=== PATIENT | female | born 1940 | race Two or more races ===

== ENCOUNTER 2016-09-12 13:42 | Emergency (ER) | payer MEDICARE, OTHER ==
[~2016-09-12] VITALS: Ht 154.9 cm; Wt 63.5 kg
[~2016-09-12 13:42] MED LIST: METF500T4 PO; OXYC5CAP PO
[2016-09-12 14:04] VITALS: BP 122/65
--- NOTE | 2016-09-12 14:43 | RAD ---
Examination: 2 views of the right hip with pelvis History: History of right hip pain after fall Comparison: None available Findings: The bilateral femoral heads are within the cerebellar. Mild joint space loss identified in the bilateral hip joints likely degenerative. There is no acute fracture or dislocation identified. Impression: No acute osseous findings.
[2016-09-12] MEDS ORDERED: CYCL5TAB PO (15:00)
--- NOTE | 2016-09-12 15:01 | PHYS DOC ---
Past Medical History Past Medical History: Diabetes-Type II Past Surgical History: Cholecystectomy, Hysterectomy, Other Additional Past Surgical Histo: back Alcohol Use: None Drug Use: None Adult General Chief Complaint Chief Complaint: HIP PAIN [facility] HPI Patient is a 76 year old female presents emergency Department with her who states that she fell on her right hip approximately one month ago. He states that she has not been seen for the pain and discomfort. She has not been taken anything to help with the discomfort as well. He denies any loss of bowel or bladder. He states that she's been able to ambulate without any difficulty however she is still complaining of some pain and discomfort in her right lower back area. Patient is Upper Sorbian-speaking only the has been is interpreting information for her. Review of Systems Review of Systems Constitutional: Denies fever or chills [] Eyes: Denies change in visual acuity, redness, or eye pain [] HENT: Denies nasal congestion or sore throat [] Respiratory: Denies cough or shortness of breath [] Cardiovascular: No additional information not addressed in HPI [] GI: Denies abdominal pain, nausea, vomiting, bloody stools or diarrhea [] : Denies dysuria or hematuria [] Musculoskeletal: Complaint of right lower back pain denies joint pain Integument: Denies rash or skin lesions [] Neurologic: Denies headache, focal weakness or sensory changes [] Endocrine: Denies polyuria or polydipsia [] Allergies Allergies Allergies Coded Allergies Type Severity Reaction Last Updated Verified No Known Drug Allergies 04/14/13 No Physical Exam Physical Exam Constitutional: Well developed, well nourished, no acute distress, non-toxic appearance. [] HENT: Normocephalic, atraumatic, bilateral external ears normal, oropharynx moist, no oral exudates, nose normal. [] Eyes: PERRLA, EOMI, conjunctiva normal, no discharge. [] Neck: Normal range of motion, no tenderness, supple, no stridor. [] Cardiovascular:Heart rate regular rhythm, no murmur [] Lungs & Thorax: Bilateral breath sounds clear to auscultation [] Skin: Warm, dry, no erythema, no rash. [] Back: No thoracic, lumbar spine discomfort. No crepitus no deformities no step- offs noted. Patient was noted to have tenderness on the right lower back area. She has increased discomfort with raising the right leg. No discomfort noted with raising the left leg. Peripheral pulses 2+ cap refill brisk less than 2 seconds. Extremities: No tenderness, no cyanosis, no clubbing, ROM intact, no edema. [] Neurologic: Alert and oriented X 3, normal motor function, normal sensory function, no focal deficits noted. [] Psychologic: Affect normal, judgement normal, mood normal. [] Current Patient Data Vital Signs Vital Signs Date Time Temp Pulse Resp B/P (MAP) Pulse Ox O2 Delivery O2 Flow Rate FiO2 09/12/16 14:04 97.9 62 20 122/65 (84) 97 Room Air 97.9 EKG EKG [] Radiology/Procedures Radiology/Procedures [facility] [address] [place] [address] IMAGING REPORT Signed PATIENT: SARAH RIVAS ACCOUNT: [id number] : 1940 LOCATION: ER AGE: 76 SEX: F EXAM STATUS: REG ER ORD. PHYSICIAN: RENETTA RAMESH APRN REASON: right hip pain after a fall 1-2 months ago PROCEDURE: HIP RIGHT 2V WITH PELVIS Examination: 2 views of the right hip with pelvis History: History of right hip pain after fall Comparison: None available Findings: The bilateral femoral heads are within the cerebellar. Mild joint space loss identified in the bilateral hip joints likely degenerative. There is no acute fracture or dislocation identified. Impression: No acute osseous findings. DICTATED and SIGNED BY: COLE SMALLWOOD MD DATE: 09/12/16 1439 CC: RENETTA RAMESH APRN; PASHA POLLOCK ~ [] Course & Med Decision Making Course & Med Decision Making Pertinent Labs and Imaging studies reviewed. (See chart for details) Patient will be discharged home with recommendations for ibuprofen 600 mg every 8 hours. She'll be provided with Flexeril in which she has been instructed will cause drowsiness do not take any be alert and oriented. Recommended ice packs on 20 minutes off 20 minutes several times a day. Also recommended following up primary care physician next 7-10 days. Family member who is interpreting for patient agrees with discharge instructions, treatment regimens and follow-up recommendations. Signs and symptoms to return back to emergency department has been provided to the . The agrees with the treatment regimens and follow-up recommendations. Patient will be discharged home in stable condition. [] Dawit Disclaimer Dragon Disclaimer This electronic medical record was generated, in whole or in part, using a voice recognition dictation system. Departure Departure Impression: Primary Impression: Lower back pain Disposition: HOME, SELF-CARE Condition: STABLE Referrals: PASHA POLLOCK (PCP) Patient Instructions: Back Pain, Adult, [id number] Additional Instructions: Activity as tolerated. Ibuprofen 600 mg every 8 hours with food stop taking few develop upset stomach. Flexeril as a muscle relaxer this medication will cause drowsiness do not take any be alert and oriented. Ice packs on 20 minutes off 20 minutes several times a day. Follow-up with your primary care physician in the next 7-10 days. Return back to emergency department sign symptoms become worse. Scripts Cyclobenzaprine Hcl (CYCLOBENZAPRINE HCL) 5 Mg Tablet 1 TAB PO TID Y for MUSCLE SPASMS, #30 TAB Prov: RENETTA RAMESH APRN 09/12/16 RENETTA RAMESH APRN Sep 12, 2016 15:01
== END 2016-09-12 15:13 | disposition home or self-care (01) ==
LOC: ER 13:42
DX: M54.5 Low back pain (principal); M25.551 Pain in right hip; E11.9 Type 2 diabetes mellitus without complications; Z90.710 Acquired absence of both cervix and uterus; Z90.49 Acquired absence of other specified parts of digestive tract; Z98.890 Other specified postprocedural states
CPT/HCPCS: 73502; 99284

== ENCOUNTER → 2017-05-04 | Outpatient (CLI) | payer OTHER, MEDICARE | END | disposition home or self-care (01) | LOC: KCIC DEXA 10:54 | DX: Z13.820 Encounter for screening for osteoporosis (principal); M85.88 Other specified disorders of bone density and structure, other site; E11.9 Type 2 diabetes mellitus without complications; Z78.0 Asymptomatic menopausal state | CPT/HCPCS: 77080 ==

== ENCOUNTER 2017-10-29 19:56 | Emergency (ER) | payer OTHER ==
[~2017-10-29] VITALS: Ht 154.9 cm; Wt 63.5 kg
[~2017-10-29 19:56] MED LIST changes: +CYCL5TAB PO; -METF500T4 PO; +METF500T5 PO
[2017-10-29 20:00] VITALS: BP 163/74
[2017-10-29] MEDS ORDERED: TETRACAINE 0.5% OPHTH SOLUTION 4ML BOTTLE. OS ONE (20:30)
[2017-10-29] MEDS ORDERED: FLUORESCEIN OPHTH TEST STRIP. OS ONE (20:30)
--- NOTE | 2017-10-29 20:31 | PHYS DOC ---
Past Medical History Past Medical History: Diabetes-Type II Past Surgical History: Cholecystectomy, Hysterectomy, Other Additional Past Surgical Histo: back Alcohol Use: None Drug Use: None Adult General Chief Complaint Chief Complaint: EYE PROBLEMS HPI HPI Patient is a 77 year old female with history of diabetes type 2 who presents today complaining of a "splinter to the left eye". Patient states she's had the sensation of a foreign object to the left eye since this morning. Patient denies any known injury. Denies any vision loss. Review of Systems Review of Systems Constitutional: Denies fever or chills [] Eyes: Reports foreign object to the left eye. Denies change in visual acuity, redness Musculoskeletal: Denies back pain or joint pain [] Integument: Denies rash or skin lesions [] Neurologic: Denies headache, focal weakness or sensory changes [] All other systems were reviewed and found to be within normal limits, except as documented in this note. Current Medications Current Medications Current Medications Medications (Trade) Dose Ordered Sig/Ml Start Time Stop Time Status Last Admin Dose Admin Fluorescein Sodium (Ful-Mariaelena) 1 strip 1X ONCE 10/29/17 20:30 10/29/17 20:32 DC 10/29/17 20:41 1 STRIP Tetracaine HCl (Tetracaine) 1 drop 1X ONCE 10/29/17 20:30 10/29/17 20:32 DC 10/29/17 10:40 1 DROP Allergies Allergies Allergies Coded Allergies Type Severity Reaction Last Updated Verified No Known Drug Allergies 04/14/13 No Physical Exam Physical Exam Constitutional: Well developed, well nourished, no acute distress, non-toxic appearance. [] HENT: Normocephalic, atraumatic, bilateral external ears normal, oropharynx moist, no oral exudates, nose normal. [] Eyes: PERRLA, EOMI, conjunctiva normal, no discharge. [] Visual exam under gannon lamp was noted for corneal abrasion on the left medial cornea. Skin: Warm, dry, no erythema, no rash. [] Back: No tenderness, no CVA tenderness. [] Extremities: No tenderness, no cyanosis, no clubbing, ROM intact, no edema. [] Neurologic: Alert and oriented X 3, normal motor function, normal sensory function, no focal deficits noted. [] Psychologic: Affect normal, judgement normal, mood normal. [] Current Patient Data Vital Signs Vital Signs Date Time Temp Pulse Resp B/P (MAP) Pulse Ox O2 Delivery O2 Flow Rate FiO2 10/29/17 20:00 16 163/74 (103) Room Air EKG EKG [] Radiology/Procedures Radiology/Procedures [] Course & Med Decision Making Course & Med Decision Making Pertinent Labs and Imaging studies reviewed. (See chart for details) Patient has corneal abrasion. Discharged with erythromycin. Follow-up with corrective therapist in 1-2 weeks as needed. Dragon Disclaimer Dragon Disclaimer This electronic medical record was generated, in whole or in part, using a voice recognition dictation system. Departure Departure Impression: Primary Impression: Corneal abrasion, left Disposition: HOME, SELF-CARE Condition: STABLE Referrals: PASHA POLLOCK (PCP) Carlton ZAZUETA MD Follow-up in one week Patient Instructions: Eye - Corneal Abrasion, [id number] Additional Instructions: You have a corneal abrasion to the left eye. We provided you an eye doctor. Follow-up with them as needed in 1-2 weeks. Use the eye ointment as prescribed. Scripts Erythromycin Base (Erythromycin) 1 Gm Oint...g. 1 GM LEFTEYE Q4HRS W/A, #1 MISC Use for 7 days Prov: MJ JANE APRN 10/29/17 Problem Qualifiers Primary Impression: Corneal abrasion, left Encounter type: initial encounter Qualified Codes: S05.02XA - Injury of conjunctiva and corneal abrasion without foreign body, left eye, initial encounter MJ JANE APRN Oct 29, 2017 20:31
[2017-10-29] MEDS ORDERED: ERYT1OIN6 LEFTEYE (21:17)
== END 2017-10-29 21:25 | disposition home or self-care (01) ==
LOC: ER 19:56
DX: S05.02XA Injury of conjunctiva and corneal abrasion without foreign body, left eye, initial encounter (principal); E11.9 Type 2 diabetes mellitus without complications; X58.XXXA Exposure to other specified factors, initial encounter; Y93.89 Activity, other specified; Y99.8 Other external cause status; Y92.89 Other specified places as the place of occurrence of the external cause
CPT/HCPCS: 99283

== ENCOUNTER → 2019-11-06 | Outpatient (CLI) | payer OTHER ==
[~2019-11-06] MED LIST changes: +ERYT1OIN6 LEFTEYE; +METF500T16 PO; -METF500T5 PO
--- NOTE | 2019-11-06 16:05 | RAD ---
MRI Brain without contrast History:Recent falls, left-sided numbness Technique: Multiplanar, multisequential noncontrast MR imaging was performed of the brain. Comparison: None Findings: There is mild motion. There is no evidence of recent infarct or cytotoxic edema. The ventricles, sulci, and cisterns are within normal limits in size and configuration. There is no significant midline shift, intraaxial mass effect, or focal abnormal extra-axial fluid collection. There is scattered multifocal [id number] T2 and FLAIR hyperintense abnormality of the supratentorial parenchyma bilaterally. There is associated mild volume loss of a focus of the right periatrial white matter likely sequela of a small old lacunar infarct. There is preservation of the major intracranial flow-voids at the skull base. The cerebellar tonsils are normal in location. There is no significant abnormality of the pineal gland or pituitary gland. There is mild bilateral ethmoid air cell and left maxillary sinus mucosal thickening. Frontal sinus is not pneumatized. The mastoid air cells are aerated. There is preserved marrow signal of the clivus. There has been lens surgery bilaterally. There is likely degree of degenerative change of the temporomandibular joints bilaterally. There is degenerative disc disease of the visualized cervical spine greatest at C3-4 and C4-5 at which there is degree of spinal stenosis, not fully evaluated. Impression: 1. There is no evidence of recent infarct or significant intracranial mass effect. There is scattered multifocal mild to moderate T2 and FLAIR hyperintense signal abnormality of the supratentorial parenchyma bilaterally. Nonspecific findings are more commonly due to chronic microvascular ischemic disease in a patient this age. 2. There is degree of spinal stenosis at the visualized C3-4 and C4-5 levels, not fully evaluated. Electronically signed by: Chucky Rucker MD (11/06/2019 4:03 PM) [id number]
== END | disposition home or self-care (01) ==
LOC: MRI 13:53
PROVIDERS: ATTEND Family Medicine
DX: M26.633 Articular disc disorder of bilateral temporomandibular joint (principal); I25.2 Old myocardial infarction; R29.6 Repeated falls; M50.321 Other cervical disc degeneration at C4-C5 level
CPT/HCPCS: 70551

== ENCOUNTER → 2021-02-26 | Outpatient (CLI) | payer OTHER ==
--- NOTE | 2021-02-26 10:18 | RAD ---
EXAM: Right knee, 4 views. HISTORY: Pain. COMPARISON: None. FINDINGS: 4 views of the right knee are obtained. There is medial compartment joint space narrowing. There is moderate tricompartment marginal spurring. There is medial and lateral compartment chondroca lcinosis. There is a trace joint effusion. There is enthesopathy along the superior patella. 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 Electronically signed by: Imelda Huang MD (02/26/2021 10:16 AM) [id number]
== END ==
LOC: RAD 07:41
PROVIDERS: ATTEND Nurse Practitioner Family
DX: M17.11 Unilateral primary osteoarthritis, right knee (principal); M11.261 Other chondrocalcinosis, right knee; M76.891 Other specified enthesopathies of right lower limb, excluding foot; M25.861 Other specified joint disorders, right knee
CPT/HCPCS: 73564

== ENCOUNTER → 2021-03-19 | Outpatient (CLI) | payer OTHER ==
--- NOTE | 2021-03-19 09:12 | RAD ---
EXAM: Bilateral carotid duplex with waveform analysis. CLINICAL HISTORY: Vertigo, BRUIT OF CAROTID ARTERY TECHNIQUE: Longitudinal and transverse sonographic images of the bilateral carotid arteries was perfo rmed utilizing grayscale, color and spectral Doppler techniques. COMPARISON: None available FINDINGS: There is mild plaque in the carotid bifurcations and bulbs. Right vertebral artery has antegrade flow. Left vertebral artery has bidirectional flow. Right: PSV CCA (cm/s): 90 PSV ICA (cm/s): 96 EDV ICA (cm/s): 24 PSV ECA (cm/s): 97 Subclavian PSV (cm/s): 158 ICA/CCA Ratio: 1.2 Left: PSV CCA (cm/s): 95 PSV ICA (cm/s): 78 EDV ICA (cm/s): 21 PSV ECA (cm/s): 79 Subclavian PSV (cm/s): 124 ICA/CCA Ratio: 0.8 IMPRESSION: 1. Less than 50 percent stenosis of the internal carotid arteries bilaterally. 2. Bidirectional waveform of the left vertebral artery suggesting intermittent/partial subclavian sheyla al. Consensus Panel Goldman-scale and Doppler US Criteria for Diagnosis of ICA Stenosis Degree of Stenosis (%) ICA PSV (Cm/sec) Plaque Estimate (%)* Normal <125 None <50 <125 <50 50-69 125-230 >50 >70 but < near occlusion >230 >50 Near occlusion High, low, or undetectable Visible Total occlusion Undetectable Visible, no detectable lumen *Plaque estimate (diameter reduction) with goldman-scale and color Doppler US Degree of Stenosis (%) ICA/CCA PSV Ratio ICA EDV (cm/sec) Normal <2.0 <40 <50 <2.0 <40 50-69 2.0-4.0 40-100 >70 but < near occlusion >4.0 >100 Near occlusion Variable Variable Total occlusion Not applicable Not applicable Electronically signed by: Danielle Hernandez MD (03/19/2021 9:09 AM) [id number]
--- NOTE | 2021-03-19 10:03 | RAD ---
EXAM: Brain MRI without contrast. HISTORY: Vertigo. TECHNIQUE: Multiplanar, multisequence magnetic resonance imaging of the brain was performed without c ontrast. COMPARISON: 11/06/2019 FINDINGS: There is no restricted diffusion to suggest acute or subacute infarction. There is no susce ptibility effect to suggest hemorrhage. There is no mass effect or midline shift. There is no hydroce phalus. There is cerebral volume loss. There are multiple scattered focal areas of signal change throughout t he cerebral white matter. There is evidence of lens surgery. There is ethmoid sinus mucosal thickening. The mastoid air cells a re clear. There are normal flow voids within the cerebral vessels. There is a tiny dilated perivascul ar space within the right putamen. IMPRESSION: 1. Extensive scattered areas of signal change throughout the cerebral white matter, a nonspecific fin ding which is most commonly due to chronic small vessel disease in patients of this age. 2. Cerebral volume loss. Electronically signed by: Imelda Huang MD (03/19/2021 10:00 AM) [id number]
== END ==
LOC: US 07:51
PROVIDERS: ATTEND Internal Medicine
DX: I65.23 Occlusion and stenosis of bilateral carotid arteries (principal); J34.89 Other specified disorders of nose and nasal sinuses
CPT/HCPCS: 70551; 93880